=== PATIENT | female | born 1980 | race African-American/Black ===

== ENCOUNTER → 2017-02-14 | Outpatient (CLI) | payer MEDICAID ==
[~2017-02-14] MED LIST: ACET325T11 PO; ASPI81TA82 PO; PREN27TA PO; PROG100C PO; SE-NCHW CHEW; TRICTAB PO; [UNRECOGNIZED DRUG - CODE] VAGINAL
[2017-02-14 15:55] LABS: AUTOMATED NEUTROPHIL # 3.9 TH/MM3 (1.8-7.7); BASOPHIL % 0.5 % (0.0-2.0); EOSINOPHIL # 0.2 TH/MM3 (0-0.4); EOSINOPHIL % 2.2 % (0.0-4.0); HEMATOCRIT 39.3 % (35.0-46.0); HEMO FLAGS DIFF FINAL; LYMPH % 31.1 % (9.0-44.0); LYMPHOCYTE # 2.1 TH/MM3 (1.0-4.8); MEAN CELL VOLUME 88.3 FL (80.0-100.0); MEAN CORPUSCULAR HEMOGLOBIN 29.8 PG (27.0-34.0); MEAN CORPUSCULAR HGB CONC 33.8 % (32.0-36.0); MONO % 8.9 % (0.0-8.0); NEUT % 57.3 % (16.0-70.0); PLATELET COUNT 276 TH/MM3 (150-450); RED BLOOD COUNT 4.46 MIL/MM3 (4.00-5.30); RED CELL DISTRIBUTION WIDTH 18.2 % (11.6-17.2); WHITE BLOOD COUNT 6.8 TH/MM3 (4.0-11.0)
[2017-02-14 16:05] LABS: BACTERIA, URINE RARE /hpf; BLOOD, URINE NEG (NEG); GLUCOSE,URINE NEG (NEG); KETONE, URINE NEG (NEG); MUCUS URINE FEW /lpf (OCC); NITRITE,URINE NEG (NEG); SQUAMOUS EPITHELIAL CELL URINE 1 /hpf (0-5); URINE COLOR YELLOW (YELLW/STRAW)
[2017-02-14 16:33] LABS: RUBELLA IGG ANTIBODY 72.4 IU/mL (10.0-500.0); RUBELLA STATUS IMMUNE (IMMUNE)
[2017-02-15 14:12] LABS: RAPID PLASMA REAGIN SCREEN NON-REACTIVE (NON-REACTVE)
== END ==
LOC: CPRE 14:55
PROVIDERS: ATTEND Obstetrics & Gynecology
DX: Z01.812 Encounter for preprocedural laboratory examination (principal); O34.31 Maternal care for cervical incompetence, first trimester
CPT/HCPCS: 36415; 81001; 84443; 85025; 86592; 86703; 86762; 86787; 86850; 86900; 86901; 87340

== ENCOUNTER 2017-02-16 05:37 | Observation (INO) | payer MEDICAID ==
--- NOTE | 2017-02-14 17:49 | MH ---
cc: JOSE A PORTER DATE OF ADMISSION 02/16/2017 DATE OF 1980 PROCEDURE Scheduled procedure is cerclage. INDICATION Multiple second trimester losses at 20, 17, 16 and 16 weeks, incompetent cervix and failed prior cerclage. HISTORY OF THE PRESENT ILLNESS The patient is a 36-year-old black female 8, para 0-4-3-0 with LMP 11/14/2016 and EDC September 20 by dates, September 22 by 8-week ultrasound. Her cervix currently measures 3.5 cm. Her history is significant for multiple second trimester demises. The first three occurred in [place] and then she had one with us where she was found to have premature cervical dilation at 20 weeks. She underwent an emergency cerclage but broke through after a month in the hospital loss that child. She was originally hoping to get an abdominal cerclage in [place] but we could not get Medicaid to cover this. She can spontaneously and she and her are cautiously optimistic. PAST MEDICAL HISTORY She has no chronic or systemic illnesses. SOCIAL HISTORY She does not smoke, drink or use illicit drugs. She has had multiple D&C use because of her losses but never had a LEEP procedure or any manipulation of her cervix. PHYSICAL EXAMINATION GENERAL: On physical she is a well-developed black female. VITAL SIGNS: Her weight is 191. Her blood pressure is 120/60. Her urine today showed trace protein and ____. NECK: She had no thyromegaly or adenopathy. LUNGS: Clear to auscultation. HEART: Rate and rhythm are regular without murmur, heaves or thrills. BREASTS: Without dominant mass, nipple discharge, skin retraction or adenopathy. ABDOMEN: Benign. Ultrasound shows a viable single fetus with good heart tones. PELVIC: Cervix is long, closed, posterior and tender to touch. EXTREMITIES: Unremarkable. IMPRESSION Nine weeks intrauterine with multiple ultrasound confirming viability, history of previous second trimester loss times four, conception now precludes abdominal cerclage. PLAN The plan is to proceed with a cerclage early in the first trimester at least x2 and follow up carefully in the second trimester for signs of breakthrough. Risks, benefits and expectations have been described. She has signed consents and is scheduled to proceed. MD IRAIS Ramos/KK /5:23 PM /5:42 PM
[~2017-02-16] VITALS: Ht 172.7 cm; Wt 83.4 kg
[~2017-02-16 05:37] MED LIST changes: -ACET325T11 PO; -ASPI81TA82 PO; -PROG100C PO; -SE-NCHW CHEW; -TRICTAB PO
[2017-02-16] MEDS ORDERED: SODIUM CHLORID 0.9% 500 ML IV PRN (06:15)
[2017-02-16] MEDS ORDERED: METOPROLOL TARTRATE 25 MG TAB PO PRN (06:15)
[2017-02-16] MEDS ORDERED: POVIDONE IODINE 5% (ANTISEPSIS KIT) 4 APPLICATIONS EACH NARE PRN (06:15)
[2017-02-16] MEDS ORDERED: CHLORHEXIDINE GLUCONATE 2 % 1 PACK (2 CLOTHS) TOPICAL PRN (06:15)
[2017-02-16] MEDS ORDERED: ceFAZolin 2 GM PREMIX 50 ML IV SCH (06:15)
[2017-02-16] MEDS ORDERED: INSULIN HUMAN REGULAR 1,000 UNITS/10 ML VIAL SQ PRN (06:15)
[2017-02-16] MEDS ORDERED: LACTATED RINGER'S 1000 ML IV PRN (06:15)
[2017-02-16] MEDS ORDERED: SE-NCHW CHEW (06:23)
[2017-02-16] MEDS ORDERED: TRICTAB PO (06:23)
[2017-02-16] MEDS ORDERED: PROG100C PO (06:49)
[2017-02-16 06:51] VITALS: BP 115/71; PULSE 73; RESP 20; TEMP 99.6; O2SAT 100
[2017-02-16] MEDS ORDERED: FAMOTIDINE 20 MG/2 ML VIAL ONE (07:09)
[2017-02-16] MEDS ORDERED: *morphine SULFATE 8 MG/ML PERIprocedure ONLY ONE ×3 (08:52→13:47)
[2017-02-16] MEDS ORDERED: oxyCODONE/ACETAMINOPHEN 5 MG/325 MG TAB PO PRN ×2 (09:15→14:15)
[2017-02-16] MEDS ORDERED: ONDANSETRON HCL 4 MG/2 ML VIAL IV PUSH PRN (09:15)
[2017-02-16] MEDS ORDERED: *MEPERIDINE 25 MG INJ VIAL PERIprocedural Use ONLY ONE (09:24)
[2017-02-16] MEDS ORDERED: *ONDANSETRON 4 MG VIAL PERIprocedural Use ONLY ONE (09:29)
[2017-02-16] MEDS ORDERED: DO NOT ADM ANY ANTICOAGULANT DRUGS PRN (09:45)
[2017-02-16] MEDS ORDERED: LORazepam 2 MG/ML VIAL ONE (09:59)
[2017-02-16] MEDS ORDERED: LORazepam 2 MG/ML VIAL IV ONE (10:15)
--- NOTE | 2017-02-16 11:01 | PD.OP ---
Operative Report Date of Surgery: Feb 16, 2017 Preoperative Diagnosis: incompetent cervix Postoperative Diagnosis: same Procedure: [place] Cerclage with mersilene tape and prolene Anesthesia: spinal with diprovan Surgeon: Erinn Ro Truck Switcher(s): OR staff Operation and Findings: Erinn Leon MD Feb 16, 2017 11:01
[2017-02-16] MEDS ORDERED: SODIUM CHLORIDE 0.9% FLUSH 10 ML FLUSH IV FLUSH PRN (11:15)
[2017-02-16] MEDS ORDERED: PROPOFOL 200 MG/20 ML AMP IV ONE (12:00)
[2017-02-16] MEDS ORDERED: oxyCODONE/ACETAMINOPHEN 5 MG/325 MG TAB ONE (14:15)
[2017-02-16 15:00] VITALS: BP 112/55; PULSE 79; RESP 16; TEMP 97.8; O2SAT 100
--- NOTE | 2017-02-16 19:19 | HHI.OB ---
Subjective Post Operative Day: 0 Remarks Night of cerclage has significant nausea and some cramping minimal spotting Objective Vitals/I&O Vital Signs Date Time Temp Pulse Resp B/P Pulse Ox O2 Delivery O2 Flow Rate FiO2 02/16/17 15:00 97.8 79 16 112/55 100 02/16/17 14:15 78 15 108/52 99 Room Air 02/16/17 13:35 97.9 79 20 108/62 98 Room Air 02/16/17 13:00 77 19 112/63 97 Room Air 02/16/17 12:30 67 18 121/65 100 Room Air 02/16/17 12:00 74 19 94/64 100 Room Air 02/16/17 11:30 66 16 123/62 99 Room Air 02/16/17 11:00 73 15 101/55 99 Room Air 02/16/17 10:30 72 18 115/60 99 Room Air 02/16/17 10:00 70 12 124/57 99 Room Air 02/16/17 09:45 75 15 127/56 97 Room Air 02/16/17 09:30 69 14 124/76 99 Room Air 02/16/17 09:15 68 17 129/87 99 Room Air 02/16/17 09:00 63 18 138/78 99 Room Air 02/16/17 08:45 58 14 118/58 99 Nasal Cannula 2 02/16/17 08:35 98.0 80 16 100/51 100 Nasal Cannula 2 02/16/17 06:51 99.6 73 20 115/71 100 Intake & Output 02/16/17 02/16/17 07:00 19:00 Intake Total 1240 ml Output Total 260 ml Balance 980 ml Intake Oral 440 ml Other 800 ml Output Urine Total 250 ml Estimated Blood Loss 10 ml # Voids 1 # Bowel Movements 0 Objective Remarks GENERAL: Well-nourished, well-developed patient. CARDIOVASCULAR: Regular rate and rhythm without murmurs, gallops, or rubs. RESPIRATORY: Breath sounds equal bilaterally. No accessory muscle use. ABDOMEN/GI: Abdomen soft, non-tender, bowel sounds present. minimal blood on pad EXTREMITIES: No cyanosis or edema, non-tender, without signs of DVT. Medications and IVs Current Medications Medications (Trade) Dose Ordered Sig/Clark Route Start Time Stop Time Status Last Admin Lactated Ringer's 1,000 ml @ 30 mls/hr Q24H PRN IV 02/16/17 06:15 02/19/17 06:14 02/16/17 06:35 (NS 500 ml Inj) 500 ml @ 30 mls/hr [id number] PRN IV 02/16/17 06:15 02/19/17 06:14 Miscellaneous Information ALL NURSING DEPARTME... UNSCH PRN .XX 02/16/17 09:45 02/17/17 09:44 (NS Flush) 2 ml UNSCH PRN IV FLUSH 02/16/17 11:15 Assessment/Plan Assessment and Plan stable post merseline cerclage home in Erinn Ro MD Feb 16, 2017 19:18
[2017-02-16 20:00] VITALS: BP 121/70; PULSE 85; RESP 20; TEMP 98.1; O2SAT 99
[2017-02-16] MEDS ORDERED: MORPHINE SULFATE 4 MG/ML INJ IM ONE (22:15)
[2017-02-17] VITALS: BP 114/59; PULSE 73; RESP 20; TEMP 97; O2SAT 98
[2017-02-17 04:00] VITALS: BP 111/71; PULSE 75; RESP 20; TEMP 97.6; O2SAT 99
--- NOTE | 2017-02-17 07:28 | HHI.OB ---
Subjective Post Operative Day: 1 Remarks slept well with ativan no cramping yet this am but just woke up Objective Vitals/I&O Vital Signs Date Time Temp Pulse Resp B/P Pulse Ox O2 Delivery O2 Flow Rate FiO2 02/17/17 04:00 97.6 75 20 111/71 99 02/17/17 00:00 97.0 73 20 114/59 98 02/16/17 20:00 98.1 85 20 121/70 99 02/16/17 15:00 97.8 79 16 112/55 100 02/16/17 14:15 78 15 108/52 99 Room Air 02/16/17 13:35 97.9 79 20 108/62 98 Room Air 02/16/17 13:00 77 19 112/63 97 Room Air 02/16/17 12:30 67 18 121/65 100 Room Air 02/16/17 12:00 74 19 94/64 100 Room Air 02/16/17 11:30 66 16 123/62 99 Room Air 02/16/17 11:00 73 15 101/55 99 Room Air 02/16/17 10:30 72 18 115/60 99 Room Air 02/16/17 10:00 70 12 124/57 99 Room Air 02/16/17 09:45 75 15 127/56 97 Room Air 02/16/17 09:30 69 14 124/76 99 Room Air 02/16/17 09:15 68 17 129/87 99 Room Air 02/16/17 09:00 63 18 138/78 99 Room Air 02/16/17 08:45 58 14 118/58 99 Nasal Cannula 2 02/16/17 08:35 98.0 80 16 100/51 100 Nasal Cannula 2 Objective Remarks GENERAL: Well-nourished, well-developed patient. CARDIOVASCULAR: Regular rate and rhythm without murmurs, gallops, or rubs. RESPIRATORY: Breath sounds equal bilaterally. No accessory muscle use. ABDOMEN/GI: Abdomen soft, non-tender, bowel sounds present. minimal blood on pad EXTREMITIES: No cyanosis or edema, non-tender, without signs of DVT. Medications and IVs Current Medications Medications (Trade) Dose Ordered Sig/Clark Route Start Time Stop Time Status Last Admin Lactated Ringer's 1,000 ml @ 30 mls/hr Q24H PRN IV 02/16/17 06:15 02/19/17 06:14 02/16/17 06:35 (NS 500 ml Inj) 500 ml @ 30 mls/hr [id number] PRN IV 02/16/17 06:15 02/19/17 06:14 Miscellaneous Information ALL NURSING DEPARTME... UNSCH PRN .XX 02/16/17 09:45 02/17/17 09:44 (NS Flush) 2 ml UNSCH PRN IV FLUSH 02/16/17 11:15 Assessment/Plan Assessment and Plan stable post merseline cerclage home today Erinn Ro MD Feb 17, 2017 07:28
--- NOTE | 2017-02-17 07:30 | HHI.DCPOC ---
Discharge Care Plan Report Symptoms to Your Doctor -Temperature above 100.5 degrees -Redness, of incision or excessive or foul smelling drainage -Unusual pain or calf pain -Increased vaginal bleeding -Painful or difficulty urinating -Feelings of extreme sadness or anxiety after 2 weeks Goals to Promote Your Health * To prevent worsening of your condition and complications * To maintain your health at the optimal level Directions to Meet Your Goals Take your medications as prescribed Follow your dietary instruction Follow activity as directed Ensure plenty of rest for recovery Drink fluids for hydration Keep your appointments as scheduled Take your immunizations and boosters as scheduled If your symptoms worsen call your PCP, if no PCP go to Urgent Care Center or Emergency Room Smoking is Dangerous to Your Health. Avoid second hand smoke Call the 24-hour crisis hotline for domestic abuse at Erinn Ro MD Feb 17, 2017 07:30
[2017-02-17 08:00] VITALS: BP 117/72; PULSE 84; RESP 16; TEMP 97.8; O2SAT 98
--- NOTE | 2017-02-18 17:43 | MP ---
cc: JOSE A PORTER DATE OF SURGERY 02/16/17 POSTOPERATIVE DIAGNOSIS Incompetent cervix with a total a 5-second trimester losses. PROCEDURE [place] cerclage. ANESTHESIA General SURGEON Jennifer Porter SAFETY ASSISTANT OR staff FINDINGS Examination under anesthesia at 9 weeks of estimated gestational age shows a very thin posterior cervix and a retroverted uterus with what seems to be a lower uterine segment that has developed for 9 weeks. Mersilene tape was used to initiate a cerclage and then this was followed higher up with a Prolene stitch. There was mild bleeding. The patient tolerated the procedure well. She will be observed overnight. She is Rh positive. Sponge, instrument, needle count were correct. She tolerated the procedure well. PROCEDURE IN DETAIL The patient was taken to the operating room. She was administered spinal. her permit had been reviewed with her prior. A time-out was performed. She was given 2 grams of Ancef. A red rubber catheter was used to drain her bladder. She was put in dorsal supine position. The cervix was carefully examined. A ring forceps was placed on the anterior lip. The posterior lip was negligible in length, grasped with a single-tooth tenaculum and placed on traction. As far up as comfortable, a Mersilene tape was placed from 4 to 8, 8 to 12 and then using the other side which also had a needle it was placed from 4 to 2 and 2 to 12 and then tied off at the top. Then the Mersilene tape was placed on traction and Prolene was used to create a stitch from similar areas on the clock to tie it off at about 2 o'clock with long tail and multiple sutures, multiple knots. The bleeding was moderate but stopped after the procedure. She was placed in dorsal supine position, awaken and taken to the recovery room in stable condition. heart tones are not going to be found at 9 weeks. We felt it was necessary to go early on this one. She will be observed overnight for piece of mind. Jose A Porter MD P[facility]/ /11:02 AM /5:30 PM
== END 2017-02-17 10:56 | disposition home or self-care (01) ==
LOC: HSDC 05:37 → HSDI 11:02 → HOCB 14:48
PROVIDERS: ADMIT Obstetrics & Gynecology; ATTEND Obstetrics & Gynecology
DX: O34.32 Maternal care for cervical incompetence, second trimester (principal); O26.21 Pregnancy care for patient with recurrent pregnancy loss, first trimester; O26.891 Other specified pregnancy related conditions, first trimester; R11.0 Nausea; R10.9 Unspecified abdominal pain; Z3A.09 9 weeks gestation of pregnancy
CPT/HCPCS: 00948; 59320; G0378; J0690; J2060; J2175; J2270; J2405; J7120

== ENCOUNTER 2017-02-23 16:47 | Observation (INO) | payer MEDICAID ==
[~2017-02-23] VITALS: Ht 172.7 cm; Wt 90.0 kg
[2017-02-23] VITALS (12 sets, daily range): BP systolic 105–177; BP diastolic 61–94; PULSE 18–95; RESP 16–24; TEMP 98.1–98.6; O2SAT 96–100
[~2017-02-23 16:47] MED LIST changes: -PREN27TA PO; +PROG100C PO; +TRICTAB PO; -[UNRECOGNIZED DRUG - CODE] VAGINAL
[2017-02-23] MEDS ORDERED: SODIUM CHLOR 0.9% 1000 ML INJ 1,000 ML IV SCH (17:36)
[2017-02-23] MEDS ORDERED: ONDANSETRON HCL 4 MG/2 ML VIAL IVP ONE (17:45)
[2017-02-23] MEDS ORDERED: MORPHINE SULFATE 4 MG/ML INJ IV PUSH ONE (17:45)
[2017-02-23] MEDS ORDERED: SODIUM CHLORIDE 0.9% FLUSH 10 ML FLUSH IV FLUSH PRN (17:45)
[2017-02-23] MEDS ORDERED: LACTATED RINGER'S 1000 ML INJ 1,000 ML IV ONE (18:03)
--- NOTE | 2017-02-23 18:05 | PD ---
HPI Chief Complaint: Related Problem Time Seen by Provider: 17:36 Travel History International Travel<30 days: No Contact w/Intl Traveler<30days: No Traveled to known affect area: No History of Present Illness HPI Patient is a 36-year-old female who was sent to the emergency room by Dr. Garland for D&C. Patient is A7 - presents to ER 10 weeks . Reports that she was seen in the office today as she was having severe lower abdominal cramping and was found to have a fetus with no heart tones. Patient does have a double cerclage in place, patient's symptoms emergency room for D&C by Dr. Garland [facility] Past Medical History Blood Disorders: No Anxiety: Yes Depression: Yes Cancer: No Cardiovascular Problems: No Diabetes: No Endocrine: No Genitourinary: No Hepatitis: No Hiatal Hernia: No Immune Disorder: No Musculoskeletal: No Neurologic: Yes (hx of migraines) Psychiatric: Yes (bi polar anxiety and ptsd) Reproductive: No (yeast infection) Respiratory: No Thyroid Disease: No ?: LMP: 12/14/16 Past Surgical History AICD: No Body Medical Devices: NONE Gynecologic Surgery: Yes ( d and c X2, CERCLAGE) Joint Replacement: No Pacemaker: No Thoracic Surgery: Yes (behind left ear cyst removed) Social History Alcohol Use: No Tobacco Use: No Substance Use: No Allergies-Medications (Allergen,Severity, Reaction): Coded Allergies: Adhesives (Verified Allergy, Severe, skin irritation, 02/23/17) [place] (Verified Allergy, Severe, juice and most fruit juices causes throat to swell and irri, 02/23/17) Reported Meds & Prescriptions Reported Meds & Active Scripts Active Reported Progesterone Micronized 100 Mg Cap 100 Mg PO DAILY ( Vit-Ferrous Fumarate) 1 Tab Tab 1 Tab PO DAILY Review of Systems General / Constitutional: No: Fever Eyes: No: Visual changes HENT: No: Headaches Cardiovascular: No: Chest Pain or Discomfort Respiratory: No: Shortness of Breath Gastrointestinal: Positive: Abdominal Pain, Other (abdominal cramping) Genitourinary: No: Dysuria Musculoskeletal: No: Pain Skin: No Rash Neurologic: No: Weakness Psychiatric: No: Depression Endocrine: No: Polydipsia Hematologic/Lymphatic: No: Easy Bruising Physical Exam Narrative GENERAL: Moderate distress SKIN: Focused skin assessment warm/dry. HEAD: Atraumatic. Normocephalic. EYES: Pupils equal and round. No scleral icterus. No injection or drainage. ENT: No nasal bleeding or discharge. Mucous membranes pink and moist. NECK: Trachea midline. No JVD. CARDIOVASCULAR: Regular rate and rhythm. No murmur appreciated. RESPIRATORY: No accessory muscle use. Clear to auscultation. Breath sounds equal bilaterally. GASTROINTESTINAL: Abdomen soft, tenderness to lower abdomen, nondistended. Hepatic and splenic margins not palpable. MUSCULOSKELETAL: No obvious deformities. No clubbing. No cyanosis. No edema. NEUROLOGICAL: Awake and alert. No obvious cranial nerve deficits. Motor grossly within normal limits. Normal speech. PSYCHIATRIC: Appropriate mood and affect; insight and judgment normal. Data Data Last Documented VS Vital Signs Date Time Temp Pulse Resp B/P Pulse Ox O2 Delivery O2 Flow Rate FiO2 02/23/17 17:44 73 20 124/64 02/23/17 16:50 98.3 99 Room Air Orders Iv Access Insert/Monitor (02/23/17 17:36) Ecg Monitoring (02/23/17 17:36) Oximetry (02/23/17 17:36) NPO (02/23/17 17:36) Morphine Inj (Morphine Inj) (02/23/17 17:45) Ondansetron Inj (Zofran Inj) (02/23/17 17:45) Sodium Chlor 0.9% 1000 Ml Inj (Ns 1000 M (02/23/17 17:36) Sodium Chloride 0.9% Flush (Ns Flush) (02/23/17 17:45) Complete Blood Count With Diff (02/23/17 17:38) Basic Metabolic Panel (Bmp) (02/23/17 17:38) Complete Rh (02/23/17 17:38) Type And Screen (02/23/17 17:38) MDM Medical Decision Making Medical Screen Exam Complete: Yes Emergency Medical Condition: Yes Interpretation(s) Vital Signs Date Time Temp Pulse Resp B/P Pulse Ox O2 Delivery O2 Flow Rate FiO2 02/23/17 17:44 73 20 124/64 02/23/17 16:50 98.3 80 24 177/94 99 Room Air Differential Diagnosis Differential includes inevitable miscarriage Narrative Course 36-year-old female who presents to emergency room for evaluation of D&C by Dr. Garland. Reports that she is 10 weeks and has been having lower abdominal cramping. She was found to have no heart tones - patient was sent to the ER for cerclage. Dr. Garland evaluated patient in the ER. Patient will go to L&D for D&C. Plan to admit to Dr. Garland's service Diagnosis Primary Impression: Miscarriage Admitting Information Admitting Physician Requests: Meghana Hill DO Feb 23, 2017 18:05
--- NOTE | 2017-02-23 18:11 | PD.CONS ---
HPI Chief Complaint SAB with cerclage in place severe pain and cramping needs removal janel Date Seen: Feb 23, 2017 Travel History International Travel<30 Days: No Contact w/Intl Traveler<30Days: No Known Affected Area: No History of Present Illness HPI 36 yo well known to me s/p cerclage at 9 weeks. Placed this early as she is preferrably a candidate for abdominal cerclage but conceived and this was next best option. Involved recreated posterior cervical length and was otherwise uneventful Had quiet first week and then pain today. no evidence infection. No bleeding. sono shows 9 week with no FHT History Past Medical History Narrative Medical 8 losses ,most second trimester. Last with failed cerclage Allergies-Medications (Allergen,Severity, Reaction): Coded Allergies: Adhesives (Verified Allergy, Severe, skin irritation, 02/23/17) Stella (Verified Allergy, Severe, juice and most fruit juices causes throat to swell and irri, 02/23/17) Home Meds Reported Medications Progesterone Micronized 100 Mg [id number] Mg PO DAILY #30 CAP Ref 0 02/16/17 Vit-Ferrous Fumarate ()1 Tab Tab1 Tab PO DAILY #30 TAB Ref 0 02/16/17 Discontinued Reported Medications Vit W/ Ferrous Fumara Chew (Se- 19 29-1 mg Chew)1 Chew1 Tab CHEW DAILY Ref 0 02/16/17 Progesterone (Vaginal) (First-Progesterone Vgs 25)Vgs 25 Sup1 Supp VAGINAL HS 05/28/15 Physical Exam Vital Signs Date Time Temp Pulse Resp B/P Pulse Ox O2 Delivery O2 Flow Rate FiO2 02/23/17 17:44 73 20 124/64 02/23/17 16:50 98.3 80 24 177/94 99 Room Air Narrative GENERAL: Well-nourished, well-developed patient. SKIN: Warm and dry. HEAD: Normocephalic and atraumatic. EYES: No scleral icterus. No injection or drainage. ENT: No nasal drainage noted. Mucous membranes pink. Airway patent. NECK: Supple, trachea midline. No JVD. CARDIOVASCULAR: Regular rate and rhythm without murmurs, gallops, or rubs. RESPIRATORY: Breath sounds equal bilaterally. No accessory muscle use. BREASTS: Bilateral exam showed no masses , no retractions, no nipple discharge. ABDOMEN/GI: Abdomen soft, non-tender, bowel sounds present, no rebound, no guarding EXTREMITIES: No cyanosis or edema. BACK: Nontender without obvious deformity. No CVA tenderness. NEUROLOGICAL: Awake and alert. Motor and sensory grossly within normal limits. Five out of 5 muscle strength in all muscle groups. Normal speech. Data Data Orders Iv Access Insert/Monitor (02/23/17 17:36) Ecg Monitoring (02/23/17 17:36) Oximetry (02/23/17 17:36) NPO (02/23/17 17:36) Morphine Inj (Morphine Inj) (02/23/17 17:45) Ondansetron Inj (Zofran Inj) (02/23/17 17:45) Sodium Chlor 0.9% 1000 Ml Inj (Ns 1000 M (02/23/17 17:36) Sodium Chloride 0.9% Flush (Ns Flush) (02/23/17 17:45) Complete Blood Count With Diff (02/23/17 17:38) Basic Metabolic Panel (Bmp) (02/23/17 17:38) Complete Rh (02/23/17 17:38) Type And Screen (02/23/17 17:38) Admit Order (Ed Use Only) (02/23/17 17:55) Code Status (02/23/17 18:03) Vital Signs (Adult) .ON ADMISSION (02/23/17 18:03) Activity Oob Ad Sarah (02/23/17 18:03) Scd / Pepe / Foot Pump LIOR.QSHIFT (02/23/17 18:03) Diet Npo (02/23/17 Dinner) Lactated Ringer's 1000 Ml Inj (Lr 1000 M (02/23/17 18:03) Lactated Ringer's 1000 Ml Inj (Lr 1000 M (02/23/17 18:33) Cefazolin 2 Gm Premix (Ancef 2 Gm Premix (02/23/17 19:15) Citric Acid-Sodium Citrate Liq (Bicitra (02/23/17 19:45) Urinalysis - C+S If Indicated (02/23/17 18:03) MDM Interpretation(s) SAB with cerclage preventing spontaneous expulsion--need removal and then D & C to be performed in L & D janel. RH + Admitting diagnosis: Spontaneous miscarriage Erinn Ro MD Feb 23, 2017 18:11
[2017-02-23 18:12] LABS: AUTOMATED NEUTROPHIL # 4.1 TH/MM3 (1.8-7.7); BASOPHIL % 0.4 % (0.0-2.0); EOSINOPHIL # 0.1 TH/MM3 (0-0.4); EOSINOPHIL % 1.7 % (0.0-4.0); HEMATOCRIT 37.8 % (35.0-46.0); HEMO FLAGS DIFF FINAL; LYMPH % 31.9 % (9.0-44.0); LYMPHOCYTE # 2.3 TH/MM3 (1.0-4.8); MEAN CORPUSCULAR HGB CONC 34.1 % (32.0-36.0); MONO % 7.6 % (0.0-8.0); NEUT % 58.4 % (16.0-70.0); PLATELET COUNT 246 TH/MM3 (150-450); RED CELL DISTRIBUTION WIDTH 17.6 % (11.6-17.2); WHITE BLOOD COUNT 7.1 TH/MM3 (4.0-11.0)
[2017-02-23 18:25] LABS: BICARBONATE 27.9 MEQ/L (21.0-32.0)
[2017-02-23] MEDS ORDERED: LACTATED RINGER'S 1000 ML INJ 1,000 ML IV SCH (18:33)
[2017-02-23] MEDS ORDERED: ONDANSETRON HCL 4 MG/2 ML VIAL IV PUSH PRN (19:00)
[2017-02-23] MEDS ORDERED: oxyCODONE/ACETAMINOPHEN 5 MG/325 MG TAB PO PRN (19:00)
[2017-02-23] MEDS ORDERED: oxyCODONE/ACETAMINOPHEN 10 MG/325 MG TAB PO PRN (19:00)
[2017-02-23] MEDS ORDERED: METHYLERGONOVINE MALEATE 0.2 MG/ML VIAL ONE (19:05)
[2017-02-23] MEDS ORDERED: ceFAZolin 2 GM PREMIX 50 ML IV SCH (19:15)
[2017-02-23] MEDS ORDERED: MIDAZOLAM HCL 2 MG/2 ML VIAL ONE (19:29)
[2017-02-23] MEDS ORDERED: diphenhydrAMINE HCL 50 MG/ML VIAL ONE (19:38)
[2017-02-23] MEDS ORDERED: CITRIC ACID-SODIUM CITRATE LIQ 30 ML UDC PO SCH (19:45)
[2017-02-23] MEDS ORDERED: MEPERIDINE HCL 25 MG/ML VIAL ONE (20:07)
[2017-02-23] MEDS ORDERED: EPIDURAL-NALOXONE HCL 0.4 MG/ML AMP IV PRN (21:45)
[2017-02-23] MEDS ORDERED: EPIDURAL-DIPHENHYDRAMINE HCL 50 MG CAP PO PRN (21:45)
[2017-02-23] MEDS ORDERED: EPIDURAL-DIPHENHYDRAMINE HCL 50 MG/ML VIAL IV PUSH PRN (21:45)
[2017-02-23] MEDS ORDERED: EPIDURAL-NO SYSTEMIC NARCOTICS PRN (21:45)
[2017-02-23] MEDS ORDERED: EPIDURAL-DO NOT ADMINISTER ANTICOAGULANTS PRN (21:45)
[2017-02-24 00:26] VITALS: RESP 18; TEMP 98.2
[2017-02-24 00:27] VITALS: BP 119/70; PULSE 87
== END 2017-02-24 02:37 | disposition home or self-care (01) ==
LOC: HOBED 16:47 → H2EB 18:12
PROVIDERS: ADMIT Obstetrics & Gynecology; ATTEND Obstetrics & Gynecology
DX: O03.9 Complete or unspecified spontaneous abortion without complication (principal); F41.9 Anxiety disorder, unspecified; F32.9 Major depressive disorder, single episode, unspecified; Z87.891 Personal history of nicotine dependence
CPT/HCPCS: 00940; 01965; 59812; 59871; 80048; 85025; 86850; 86900; 86901; 88305; 96374; 96375; 99285; G0378; J0690; J1200; J2175; J2250; J2270; J2405; J3010; J7030; J7120; J2210